=== PATIENT | male | born 1945 | race Caucasian/White ===

== ENCOUNTER → 2017-01-24 | Outpatient (CLI) | payer MEDICARE, OTHER ==
[~2017-01-24] MED LIST: Iopamidol 755 MG/ML 500 ML Multipack Bottle IVPUSH STA
--- NOTE | 2017-01-24 15:45 | CT ---
CT of the abdomen and pelvis with contrast. HISTORY: Pain TECHNIQUE: Axial CT images were obtained of the abdomen and pelvis following administration of 100 m L of Isovue-370 right antecubital fossa without complication. Coronal and sagittal reconstructions o btained. FINDINGS: The lung bases are clear, no pleural effusion. Tiny hepatic cysts are noted. The spleen, pancreas, and gallbladder appear normal. Tiny adrenal nod ules are noted, likely adenomas. No bulky retroperitoneal lymphadenopathy or abdominal ascites. Sm all hiatal hernia. The kidneys enhance and function symmetrically without evidence of obstructive uropathy. Small nonob structing renal stones noted bilaterally. The large and small bowel are normal in caliber without evidence of obstruction. Mild sigmoid and de scending diverticulosis without evidence of diverticulitis. The prostate is mildly prominent. Degenerative changes are noted within the lumbar spine with bilateral spondylolysis at L5 without si gnificant anterolisthesis. IMPRESSION: 1. No acute cardiopulmonary findings. 2. Lateral nephrolithiasis without evidence of obstructive uropathy. 3. Diverticulosis without evidence of diverticulitis. 4. Small hiatal hernia.
== END ==
LOC: MW.DI 12:47
PROVIDERS: ATTEND Family Medicine
DX: R10.84 Generalized abdominal pain (principal); N20.0 Calculus of kidney; K57.90 Diverticulosis of intestine, part unspecified, without perforation or abscess without bleeding; K44.9 Diaphragmatic hernia without obstruction or gangrene
CPT/HCPCS: 74177; Q9967

== ENCOUNTER 2018-12-14 07:06 | Day surgery (SDC) | payer MEDICARE, OTHER ==
[2018-12-14] MEDS ORDERED: Bupivacaine 0.25%/EPINEPHrine 1:200,000 10 ML SDV ONE (07:34)
[2018-12-14] MEDS ORDERED: Tetracaine HCl/PF 0.5% 4 ML Bottle ONE (07:34)
[2018-12-14] MEDS ORDERED: fentaNYL 100 MCG/2 ML SDV ONE (07:39)
[2018-12-14] MEDS ORDERED: Propofol 200 MG/20 ML SDV ONE (07:39)
[2018-12-14] MEDS ORDERED: Lidocaine 2% 5 ML SDV ONE (07:39)
[2018-12-14] MEDS ORDERED: Midazolam 1 MG/ML 2 ML SDV ONE (07:40)
--- NOTE | 2018-12-14 07:47 | PCM.PREANE ---
Preanesthetic Assessment - Anesthesia/Transfusion/Family Hx Anesthesia History: Prior Anesthesia Without Reaction Other Type of Anesthesia Reaction Comment: Denies any known problems in the past Family History of Anesthesia Reaction: No Transfusion History: No Prior Transfusion(s) Intubation History: Unknown - Review of Systems General: No Symptoms Pulmonary: No Symptoms Cardiovascular: No Symptoms Gastrointestinal: No Symptoms Neurological: No Symptoms Other: Reports: None - Physical Assessment O2 Sat by Pulse Oximetry: 94 Respiratory Rate: 16 Vital Signs: Last Vital Signs Temp 36.6 C 12/14/18 07:25 Pulse 81 12/14/18 07:25 Resp 16 12/14/18 07:25 BP 148/83 H 12/14/18 07:25 Pulse Ox 94 L 12/14/18 07:25 Height: 1.7 m Weight: 103.873 kg ASA Class: 3 Mental Status: Alert & Oriented x3 Airway Class: Mallampati = 2 Dentition: Reports: Normal Dentition, Partial (upper and lower) Thyro-Mental Finger Breadths: 3 Mouth Opening Finger Breadths: 2 ROM/Head Extension: Limited/Partial Lungs: Clear to Auscultation, Normal Respiratory Effort Cardiovascular: Regular Rate, Regular Rhythm - Allergies Allergies/Adverse Reactions: Allergies Allergy/AdvReac Type Severity Reaction Status Date / Time No Known Allergies Allergy Verified 12/12/18 09:20 - Blood Blood Available: No - Anesthesia Plan Pre-Op Medication Ordered: None - Acknowledgements Anesthesia Type Planned: MAC Pt an Appropriate Candidate for the Planned Anesthesia: Yes Alternatives and Risks of Anesthesia Discussed w Pt/Guardian: Yes Pt/Guardian Understands and Agrees with Anesthesia Plan: Yes PreAnesthesia Questionnaire HEENT History: Reports: Cataract, Hard of Hearing Other HEENT History: jose hearing aids, top and bottom partial, wears glasses Cardiovascular History: Reports: High Cholesterol, Other (See Below) (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 No status epilepticus.), TIA Other Neuro History: stroke 2 yrs ago, currently has TIA's- last one was 2 weeks ago (they cause menory loss). Has balance issues from CVA Psychiatric History: Reports: Anxiety, Dementia, Depression Endocrine/Metabolic History: Reports: Hypothyroidism, Obesity/BMI 30+ Hematologic History: Reports: None Immunologic History: Reports: None Oncologic (Cancer) History: Reports: Basal Cell Carcinoma Dermatologic History: Reports: None - Infectious Disease History Infectious Disease History: Reports: None - Past Surgical History Head Surgeries/Procedures: Reports: None HEENT Surgical History: Reports: Cataract Surgery, Tonsillectomy Cardiovascular Surgical History: Reports: None Respiratory Surgical History: Reports: Tracheostomy Other Respiratory Surgeries/Procedures: as a child (choked on a peanut) GI Surgical History: Reports: Appendectomy, Colon, Colonoscopy, Polypectomy, Other (See Below) Other GI Surgeries/Procedures: umbilical hernia repair Male Surgical History: Reports: Lithotripsy (ESWL) Endocrine Surgical History: Reports: None Neurological Surgical History: Reports: None Musculoskeletal Surgical History: Reports: None Oncologic Surgical History: Reports: None Dermatological Surgical History: Reports: None - SUBSTANCE USE Smoking Status *Q: Former Smoker Recreational Drug Use History: No - HOME MEDS Home Medications: Home Meds Simvastatin [Zocor] 40 mg PO BEDTIME 05/16/14 [History] Aspirin [Adult Low Dose Aspirin EC] 81 mg PO DAILY 08/16/16 [History] Donepezil [Aricept] 5 mg PO BEDTIME 09/06/18 [History] Levothyroxine [Synthroid] 88 mcg PO SuTuThSa@0700 tablet 09/08/18 [Rx] Levothyroxine [Synthroid] 132 mcg PO MoWeFr@0700 tablet 09/08/18 [Rx] Amitriptyline [Elavil] 25 mg PO BEDTIME 12/12/18 [History] Cyanocobalamin (Vitamin B12) [Vitamin B12] 1,000 mcg PO DAILY 12/12/18 [History] Naproxen 500 mg PO Q12H PRN 12/12/18 [History] Polyethylene Glycol 3350 [MiraLAX] 17 gm PO DAILY 12/12/18 [History] - CURRENT (IN HOUSE) MEDS Current Meds: Current Medications Bupivacaine HCl/Epinephrine Bitart (Marcaine 0.25%/Epinephrine 1:200,000) 10 ml INJECT ONETIME ONE Stop: 12/14/18 08:01 Cefazolin Sodium/Dextrose 2 gm (/ Premix) 50 mls @ 100 mls/hr IV ONETIME ONE Stop: 12/14/18 08:29 Lactated Ringer's (Ringers, Lactated) 1,000 mls @ 125 mls/hr IV ASDIRECTED DARYN Last Admin: 12/14/18 07:41 Dose: 125 mls/hr Discontinued Medications Bacitracin (Bacitracin Ophth Oint) Confirm Administered Dose 3.5 gm .ROUTE .STK- MED ONE Stop: 12/14/18 07:35 Bupivacaine HCl/Epinephrine Bitart (Marcaine 0.25%/Epinephrine 1:200,000) Confirm Administered Dose 10 ml .ROUTE .STK-MED ONE Stop: 12/14/18 07:35 Tetracaine HCl (Tetracaine 0.5% Steri-Unit Roselyn) Confirm Administered Dose 4 ml .ROUTE .STK-MED ONE Stop: 12/14/18 07:35
[2018-12-14] MEDS ORDERED: Bupivacaine 0.25%/EPINEPHrine 1:200,000 10 ML SDV INJECT ONE (08:00)
[2018-12-14] MEDS ORDERED: Lactated Ringers 1,000 ML IV SCH (08:00)
[2018-12-14] MEDS ORDERED: ceFAZolin 2 GM in Premix Bag 1 BAG IV ONE (08:00)
[2018-12-14] MEDS ORDERED: ceFAZolin 1 GM Vial ONE (08:22)
[2018-12-14] MEDS ORDERED: Ondansetron 4 MG/2 ML SDV ONE (09:36)
[2018-12-14 10:00] VITALS: BP 120/83
--- NOTE | 2018-12-14 10:18 | PCM48HPAN ---
Post Anesthesia Note - EVALUATION WITHIN 48HRS OF ANESTHETIC Vital Signs in Normal Range: Yes Patient Participated in Evaluation: Yes Respiratory Function Stable: Yes Airway Patent: Yes Cardiovascular Function Stable: Yes Hydration Status Stable: Yes Pain Control Satisfactory: Yes Nausea and Vomiting Control Satisfactory: Yes Mental Status Recovered: Yes Resp Rate: 15 - COMMENTS/OBSERVATIONS Free Text/Narrative:: no anesthesia problems
--- NOTE | 2018-12-14 10:18 | PCM.POSTAN ---
POST ANESTHESIA ASSESSMENT - MENTAL STATUS Mental Status: Alert, Oriented - RESPIRATORY Respiratory Status: Respiratory Rate WNL, Airway Patent, O2 Saturation Stable - CARDIOVASCULAR CV Status: Pulse Rate WNL, Blood Pressure Stable - GASTROINTESTINAL GI Status: No Symptoms - PAIN Pain Score: 0 - POST OP HYDRATION Hydration Status: Adequate & Stable - OBSERVATIONS Free Text/Narrative:: No anesthesia problems, patient skipped recovery room stage of postoperative care
--- NOTE | 2018-12-18 08:34 | PCM.OPNOTE ---
- General Post-Op/Procedure Note Date of Surgery/Procedure: 12/14/18 Operative Procedure(s): excision of nose lesion with frozen sections - basal cell 1.4cm with simple 1.4cm closure Pre Op Diagnosis: nose basal cell Post-Op Diagnosis: Same Anesthesia Technique: Local, MAC Primary Surgeon: Camila Schroeder [employer] Instructor: Anuradha Moore Complications: None Condition: Good Free Text/Narrative:: [id number]
--- NOTE | 2018-12-18 14:30 | OR ---
SURGEON: LUIS FELIPE LOPEZ MD DATE OF PROCEDURE: 12/14/2018 PREOPERATIVE DIAGNOSIS: Nose basal cell. POSTOPERATIVE DIAGNOSIS: Nose basal cell. PROCEDURE PERFORMED: Excision of nose lesion with frozen sections basal cell carcinoma 1.4 cm with simple 1.4 cm closure. STEEL TESTER: LUIS ARMANDO Marr. ANESTHESIA: Local MAC. REASON FOR AND ROLE OF STEEL TESTER: Retraction, prepping, draping, positioning and closure assistance. INDICATIONS: Mr. Oshea is a 73-year-old gentleman with a nose lesion. He has failed conservative management. Risks and benefits of removal were discussed with him, including but not limited to, bleeding, infection, damage to underlying or overlying structures, possible need for future interventions, and possible scarring. PROCEDURE IN DETAIL: After informed consent was obtained and placed on chart, the patient was brought to the operating theater and laid in supine position. After adequate local MAC anesthesia was obtained, the area was prepped and draped, and a time-out was completed to confirm side and site. Attention was then paid to excision of the lesion in an elliptical fashion for a total length of 1.4 cm on the tip of the nose. Fortunately, the nose tip was quite large and was easily closed in a primary fashion. Once adequately closed, the lesion had been sent for pathology and frozen sections returned as basal cell with negative margins. The wound was dressed with bacitracin. The patient was transferred o preanesthesia for recovery. He tolerated this well. All counts and needles were correct at the end of the case. FOLLOWUP INSTRUCTIONS: The patient will see us in one week for suture removal or sooner if any problems, questions, or concerns. He will use [id number]-cil-hwldeld medications for pain control as needed. HEGGTHE / MODL /[id number] MTDDaniel
== END 2018-12-14 10:20 | disposition home or self-care (01) ==
LOC: MW.SDS 07:06
PROVIDERS: ATTEND Plastic Surgery
DX: C44.311 Basal cell carcinoma of skin of nose (principal); E78.00 Pure hypercholesterolemia, unspecified; E03.9 Hypothyroidism, unspecified; F03.90 Unspecified dementia, unspecified severity, without behavioral disturbance, psychotic disturbance, mood disturbance, and anxiety; F41.9 Anxiety disorder, unspecified; F32.9 Major depressive disorder, single episode, unspecified; G40.209 Localization-related (focal) (partial) symptomatic epilepsy and epileptic syndromes with complex partial seizures, not intractable, without status epilepticus; G47.30 Sleep apnea, unspecified; E66.9 Obesity, unspecified; Z68.35 Body mass index [BMI] 35.0-35.9, adult; Z87.891 Personal history of nicotine dependence; Z86.73 Personal history of transient ischemic attack (TIA), and cerebral infarction without residual deficits; Z79.82 Long term (current) use of aspirin; Z79.899 Other long term (current) drug therapy
CPT/HCPCS: 11642; J0690; J2001; J2405; J2704; J3010; J3490; J7120; 88305; 88331; A9270-GY; J2250

== ENCOUNTER 2019-06-09 14:11 | Emergency (ER) | payer MEDICARE, OTHER ==
--- NOTE | 2019-06-09 14:30 | EDM.PDOC ---
ED HPI GENERAL MEDICAL PROBLEM - General Chief Complaint: Upper Extremity Injury/Pain Stated Complaint: PAIN IN RIGHT WRIST Time Seen by Provider: 06/09/19 14:35 Source of Information: Reports: Patient History Limitations: Reports: No Limitations - History of Present Illness INITIAL COMMENTS - FREE TEXT/NARRATIVE: HISTORY AND PHYSICAL: History of present illness: Patient is a 73-year-old male presents to the ED today with concern of right wrist injury that occurred 2-3 weeks ago. Patient states he had fallen and hit his garage a few weeks ago and doesn't recall the specifics of the events. Patient states he's had wrist pain off and on since the fall and swelling off and on. Patient states over the past 2 days he's had swelling of the right wrist and right hand and pain. Patient states he's been able to use the hand but does have some pain in doing so. Patient denies any other symptoms or concerns. Patient denies fever, chills, chest pain, shortness of breath, or cough. Denies headache, neck stiff ness, change in vision, syncope, or near syncope. Denies nausea, vomiting, abdominal pain, diarrhea, constipation, or dysuria. Has not noted any blood in urine or stool. Patient has been eating and drinking appropriately. Review of systems: As per history of present illness and below otherwise all systems reviewed and negative. Past medical history: As per history of present illness and as reviewed below otherwise noncontributory. Surgical history: As per history of present illness and as reviewed below otherwise noncontributory. Social history: See social history for further information Family history: As per history of present illness and as reviewed below otherwise noncontributory. Physical exam: General: Patient is alert, oriented, and in no acute distress. Patient sitting comfortably on exam table. HEENT: Atraumatic, normocephalic, pupils equal and reactive bilaterally, negative for conjunctival pallor or scleral icterus, mucous membranes moist, TMs normal bilaterally, throat clear, neck supple, nontender, trachea midline. No drooling or trismus noted. No meningeal signs. No hot potato voice noted. Lungs: Clear to auscultation, breath sounds equal bilaterally, chest nontender. Heart: S1S2, regular rate and rhythm without overt murmur Abdomen: Soft, nondistended, nontender. Negative for masses or hepatosplenomegaly. Negative for costovertebral tenderness. Pelvis: Stable nontender. Genitourinary: Deferred. Rectal: Deferred. Skin: Intact, warm, dry. No lesions or rashes noted. Extremities: Negative for cords or calf pain. Neurovascular unremarkable. Patient has full range of motion of complete right upper extremity and radial pulses grossly intact with capillary refill less than 2 seconds. The right wrist and hand is moderately edematous but is not erythematous or warm to the touch. Mild pain with ROM of right wrist. Neuro: Awake, alert, oriented. Cranial nerves II through XII unremarkable. Cerebellum unremarkable. Motor and sensory unremarkable throughout. Exam nonfocal. Notes: Discussed the importance for follow-up with an orthopedic provider and primary care provider. Voices understanding and is agreeable to plan of care. Denies any further questions or concerns at this time. Diagnostics: Wrist x-ray, trouble x-ray, hand x-ray Therapeutics: Wrist splint Prescription: None Impression: Right wrist pain Plan: 1. Rest, ice, elevate the affected extremity. You can apply ice 15 minutes on, 15 minutes off. 2. Tylenol as directed for pain management or discomfort. 3. Follow up with the Orthopedic provider and primary care as discussed. Return to the ED as needed and as discussed. Definitive disposition and diagnosis as appropriate pending reevaluation and review of above. right wrist Pain Score (Numeric/FACES): 7 - Related Data Allergies Allergy/AdvReac Type Severity Reaction Status Date / Time No Known Allergies Allergy Verified 06/09/19 14:25 Home Meds: Home Meds Simvastatin [Zocor] 40 mg PO BEDTIME 05/16/14 [History] Aspirin [Adult Low Dose Aspirin EC] 81 mg PO DAILY 08/16/16 [History] Donepezil [Aricept] 5 mg PO BEDTIME 09/06/18 [History] Levothyroxine [Synthroid] 88 mcg PO SuTuThSa@0700 tablet 09/08/18 [Rx] Levothyroxine [Synthroid] 132 mcg PO MoWeFr@0700 tablet 09/08/18 [Rx] Amitriptyline [Elavil] 25 mg PO BEDTIME 12/12/18 [History] Cyanocobalamin (Vitamin B12) [Vitamin B12] 1,000 mcg PO DAILY 12/12/18 [History] Naproxen 500 mg PO Q12H PRN 12/12/18 [History] Polyethylene Glycol 3350 [MiraLAX] 17 gm PO DAILY 12/12/18 [History] Past Medical History HEENT History: Reports: Cataract, Hard of Hearing Other HEENT History: jose hearing aids, top and bottom partial, wears glasses Cardiovascular History: Reports: High Cholesterol, Other (See Below) (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 No status epilepticus.), TIA Other Neuro History: stroke 2 yrs ago, currently has TIA's- last one was 2 weeks ago (they cause menory loss). Has balance issues from CVA Psychiatric History: Reports: Anxiety, Dementia, Depression Endocrine/Metabolic History: Reports: Hypothyroidism, Obesity/BMI 30+ Hematologic History: Reports: None Immunologic History: Reports: None Oncologic (Cancer) History: Reports: Basal Cell Carcinoma Dermatologic History: Reports: None - Infectious Disease History Infectious Disease History: Reports: None - Past Surgical History Head Surgeries/Procedures: Reports: None HEENT Surgical History: Reports: Cataract Surgery, Tonsillectomy Cardiovascular Surgical History: Reports: None Respiratory Surgical History: Reports: Tracheostomy Other Respiratory Surgeries/Procedures: as a child (choked on a peanut) GI Surgical History: Reports: Appendectomy, Colon, Colonoscopy, Polypectomy, Other (See Below) Other GI Surgeries/Procedures: umbilical hernia repair Male Surgical History: Reports: Lithotripsy (ESWL) Endocrine Surgical History: Reports: None Neurological Surgical History: Reports: None Musculoskeletal Surgical History: Reports: None Oncologic Surgical History: Reports: None Dermatological Surgical History: Reports: None Social & Family History - Family History Family Medical History: Noncontributory - Caffeine Use Caffeine Use: Reports: Coffee - Living Situation & Occupation Living situation: Reports: Occupation: Retired Review of Systems - Review of Systems Review Of Systems: ROS reveals no pertinent complaints other than HPI. ED EXAM, GENERAL - Physical Exam Exam: See Below (See dictation) Course - Vital Signs Last Recorded V/S: Last Vital Signs Temp 97.0 F 06/09/19 14:25 Pulse 89 06/09/19 14:25 Resp 18 06/09/19 14:25 BP 164/78 H 06/09/19 14:25 Pulse Ox 92 L 06/09/19 14:25 - Orders/Labs/Meds Orders: Active Orders 24 hr Category Date Time Status DME for Discharge [COMM] Stat Oth 06/09/19 15:21 Ordered Departure - Departure Time of Disposition: 15:23 Disposition: Home, Self-Care 01 Clinical Impression: Wrist pain Qualifiers: Laterality: right Qualified Code(s): M25.531 - Pain in right wrist - Discharge Information Referrals: PCP,Unknown [Primary Care Provider] - Forms: ED Department Discharge Additional Instructions: The following information is given to patients seen in the emergency department who are being discharged to home. This information is to outline your options for follow-up care. We provide all patients seen in our emergency department with a follow-up referral. The need for follow-up, as well as the timing and circumstances, are variable depending upon the specifics of your emergency department visit. If you don't have a primary care physician on staff, we will provide you with a referral. We always advise you to contact your personal physician following an emergency department visit to inform them of the circumstance of the visit and for follow-up with them and/or the need for any referrals to a consulting specialist. The emergency department will also refer you to a specialist when appropriate. This referral assures that you have the opportunity for follow-up care with a specialist. All of these measure are taken in an effort to provide you with optimal care, which includes your follow-up. Under all circumstances we always encourage you to contact your private physician who remains a resource for coordinating your care. When calling for follow-up care, please make the office aware that this follow-up is from your recent emergency room visit. If for any reason you are refused follow-up, please contact the [facility] Emergency Department at and asked to speak to the emergency department charge nurse. [facility] [address] [place] [id number] [facility] [address] [place] [address] [facility] - [facility] Professional Building [address] [facility] [place] [address] [address] Jackson, Orthopedist [facility] [address] [place] [address] [address] Betancourt - Dr Penn - Dr Younger Orthoped[facility] at [facility] [address] [place] [address] [facility] [address] [place] [address] 1. Rest, ice, elevate the affected extremity. You can apply ice 15 minutes on, 15 minutes off. 2. Tylenol as directed for pain management or discomfort. 3. Follow up with the Orthopedic provider and primary care as discussed. Return to the ED as needed and as discussed. - My Orders Last 24 Hours: My Active Orders 06/09/19 15:21 DME for Discharge [COMM] Stat - Assessment/Plan Last 24 Hours: My Active Orders 06/09/19 15:21 DME for Discharge [COMM] Stat
--- NOTE | 2019-06-09 15:14 | CR ---
Indication: Pain. Injury to right arm. Technique: Three views of the right elbow were obtained. Comparison: None Findings: No acute fracture or subluxation is identified. Small enthesophyte is identified extending from the olecranon. Impression: No acute fracture. Dictated by Promise Gomez MD @ Jun 09 2019 3:12PM Signed by Dr. Promise Gomez @ Jun 09 2019 3:12PM
--- NOTE | 2019-06-09 15:14 | CR ---
Indication: Pain. Injury to right arm. Technique: Three views of the right wrist. Comparison: None Findings: Degenerative changes of the right wrist are identified. No fracture or subluxation is identified. Impression: Degenerative change. Dictated by Promise Gomez MD @ Jun 09 2019 3:11PM Signed by Dr. Promise Gomez @ Jun 09 2019 3:12PM
--- NOTE | 2019-06-09 15:14 | CR ---
Indication: Pain. Injury. Technique: Three views of the right hand. Comparison: None Findings: Degenerative changes of the right hand are identified. No fracture or subluxation is identified. Impression: Degenerative change. Dictated by Promise Gomez MD @ Jun 09 2019 3:13PM Signed by Dr. Promise Gomez @ Jun 09 2019 3:13PM
[2019-06-09 15:43] VITALS: BP 160/80; PULSE 86
== END 2019-06-09 15:36 | disposition home or self-care (01) ==
LOC: MW.ED 14:11
DX: M25.531 Pain in right wrist (principal); F32.9 Major depressive disorder, single episode, unspecified; F41.9 Anxiety disorder, unspecified; E03.9 Hypothyroidism, unspecified; E66.9 Obesity, unspecified; E78.00 Pure hypercholesterolemia, unspecified; Z79.899 Other long term (current) drug therapy; Z79.82 Long term (current) use of aspirin; Z86.73 Personal history of transient ischemic attack (TIA), and cerebral infarction without residual deficits; Z98.890 Other specified postprocedural states; Z90.49 Acquired absence of other specified parts of digestive tract; Z68.33 Body mass index [BMI] 33.0-33.9, adult; W01.0XXA Fall on same level from slipping, tripping and stumbling without subsequent striking against object, initial encounter
CPT/HCPCS: 73080-26-RT; 73080-RT; 73110-26-RT; 73110-RT; 73130-26-RT; 73130-RT; 99283-25

== ENCOUNTER 2019-10-26 08:05 | Observation (INO) | payer MEDICARE, OTHER ==
--- NOTE | 2019-10-26 09:04 | EDM.PDOC ---
ED HPI GENERAL MEDICAL PROBLEM - General Chief Complaint: General Stated Complaint: SICK Time Seen by Provider: 10/26/19 08:53 Source of Information: Reports: Family (All history was gotten by his .) History Limitations: Reports: No Limitations - History of Present Illness INITIAL COMMENTS - FREE TEXT/NARRATIVE: This 74 year male with a history of severe dementia is admitted to the ED with a chief complaint according to his of chest pain with pain and tingling into both arms, right greater than the left since 6:00AM this morning. He complains of nausea and vomiting. He complains of SOB since this morning. He has a history of hypertension and high lipids. 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 No past cardiac problems according to his . She states that other than his severe dementia he has no other complaints. Onset: Today (6:00AM this morning) Location: Reports: Chest Quality: Reports: Dull, Sharp Severity: Mild (to moderate) - Related Data Allergies Allergy/AdvReac Type Severity Reaction Status Date / Time No Known Allergies Allergy Verified 10/26/19 08:19 Home Meds: Home Meds Donepezil [Aricept] 10 mg PO BEDTIME 09/06/18 [History] Levothyroxine [Synthroid] 88 mcg PO [id number]@0700 tablet 09/08/18 [Rx] Levothyroxine [Synthroid] 132 mcg PO MoWeFr@0700 tablet 09/08/18 [Rx] Aspirin 81 mg PO DAILY 10/26/19 [History] Sertraline HCl 50 mg PO DAILY 10/26/19 [History] Topiramate 25 mg PO DAILY 10/26/19 [History] Past Medical History HEENT History: Reports: Cataract, Hard of Hearing Other HEENT History: jose hearing aids, top and bottom partial, wears glasses Cardiovascular History: Reports: High Cholesterol Respiratory History: Reports: Sleep Apnea Other Respiratory History: uses CPAP Gastrointestinal History: Reports: Colon Polyp, Diverticulosis, GERD Genitourinary History: Reports: Renal Calculus Musculoskeletal History: Reports: Back Pain, Chronic Neurological History: Reports: CVA, Headaches, Chronic, Seizure, TIA Other Neuro History: stroke 2 yrs ago, TIA's with memory loss. Has balance issues from CVA Psychiatric History: Reports: Antisocial Behaviors, Anxiety, Dementia, Depression Endocrine/Metabolic History: Reports: Hypothyroidism, Obesity/BMI 30+ Hematologic History: Reports: None Immunologic History: Reports: None Oncologic (Cancer) History: Reports: Basal Cell Carcinoma Dermatologic History: Reports: None - Infectious Disease History Infectious Disease History: Reports: Chicken Pox, Meningitis, Mumps - Past Surgical History Head Surgeries/Procedures: Reports: None HEENT Surgical History: Reports: Cataract Surgery, Tonsillectomy Cardiovascular Surgical History: Reports: None Respiratory Surgical History: Reports: Tracheostomy Other Respiratory Surgeries/Procedures: as a child (choked on a peanut) GI Surgical History: Reports: Appendectomy, Colon, Colonoscopy, Polypectomy, Other (See Below) Other GI Surgeries/Procedures: umbilical hernia repair Male Surgical History: Reports: Lithotripsy (ES[facility]) Endocrine Surgical History: Reports: None Neurological Surgical History: Reports: None Musculoskeletal Surgical History: Reports: None Oncologic Surgical History: Reports: None Dermatological Surgical History: Reports: None Social & Family History - Family History Family Medical History: Noncontributory - Tobacco Use Smoking Status *Q: Former Smoker Used Tobacco, but Quit: No Second Hand Smoke Exposure: No - Caffeine Use Caffeine Use: Reports: Coffee - Recreational Drug Use Recreational Drug Use: No - Living Situation & Occupation Living situation: Reports: Occupation: Retired ED ROS GENERAL - Review of Systems Review Of Systems: See Below Constitutional: Reports: No Symptoms HEENT: Reports: No Symptoms Respiratory: Reports: Shortness of Breath Cardiovascular: Reports: Chest Pain. Denies: Lightheadedness, Orthopnea, Palpitations, Syncope Endocrine: Reports: No Symptoms GI/Abdominal: Reports: Nausea, Vomiting (this morning times one) : Reports: No Symptoms Musculoskeletal: Reports: No Symptoms Skin: Reports: No Symptoms Neurological: Reports: Other (Severe dementia) ED EXAM, GENERAL - Physical Exam Exam: See Below Exam Limited By: Altered Mental Status (Dementia) General Appearance: Alert, No Apparent Distress Eye Exam: Bilateral Eye: EOMI, Normal Inspection, PERRL Ears: Normal External Exam, Normal Canal, Hearing Grossly Normal, Normal TMs Ear Exam: Bilateral Ear: Auricle Normal, Canal Normal, TM normal Nose: Normal Inspection, Normal Mucosa, No Blood Throat/Mouth: Normal Inspection, Normal Lips, Normal Teeth, Normal Gums, Normal Oropharynx, Normal Voice, No Airway Compromise Head: Atraumatic, Normocephalic Neck: Normal Inspection, Supple, Non-Tender Respiratory/Chest: No Respiratory Distress, Chest Non-Tender, Rales (mild rales in both bases at time of my evaluation). No: Rhonchi, Wheezing Cardiovascular: Normal Peripheral Pulses, Regular Rate, Rhythm, Systolic Murmur (grade 2/6 best heard at the apex). No: No JVD, No Rub, JVD, Gallop/S3 Peripheral Pulses: 2+: Radial (L), 3+: Carotid (L), Carotid (R), Radial (R), Dorsalis Pedis (L), Dorsalis Pedis (R) GI/Abdominal: Normal Bowel Sounds, Soft, Non-Tender, No Organomegaly, No Distention, No Abnormal Bruit, No Mass (Male) Exam: Deferred Rectal (Males) Exam: Deferred Back Exam: Normal Inspection Extremities: Normal Inspection, Non-Tender, No Pedal Edema. No: Joint Swelling , Ludmila's Sign, Leg Pain Neurological: Alert, Normal Reflexes, Other (unable to evaluate due to severe dementia. Mild weakness noted of the left arm and leg. He is status post CVA 3 years ago.) Skin Exam: Warm, Dry, Intact, Normal Color, No Rash Lymphatic: No Adenopathy Course - Vital Signs Text/Narrative:: I re-examined the patient. His physical exam is negative. His CT of the head is negative. He will be discharged at this time. Last Recorded V/S: Last Vital Signs Temp 96.5 F 10/26/19 08:19 Pulse 72 10/26/19 08:19 Resp 16 10/26/19 08:19 BP 172/99 H 10/26/19 08:19 Pulse Ox 97 10/26/19 08:19 - Orders/Labs/Meds Orders: Active Orders 24 hr Category Date Time Status EKG 12 Lead [EKG Documentation Completion] [RC] STAT Care 10/26/19 08:46 Active CULTURE URINE [RM] Stat Lab 10/26/19 09:26 Received Labs: Laboratory Tests 10/26/19 10/26/19 10/26/19 Range/Units 08:40 08:40 08:40 WBC 8.59 (4.0-11.0) K/uL RBC 5.00 (4.50-5.90) M/uL Hgb 16.1 (13.0-17.0) g/dL Hct 46.7 (38.0-50.0) % MCV 93.4 (80.0-98.0) fL MCH 32.2 H (27.0-32.0) pg MCHC 34.5 (31.0-37.0) g/dL RDW Std Deviation 46.8 (28.0-62.0) fl RDW Coeff of [place] 14 (11.0-15.0) % Plt Count 182 (150-400) K/uL MPV 10.10 (7.40-12.00) fL Neut % (Auto) 83.6 H (48.0-80.0) % Lymph % (Auto) 10.0 L (16.0-40.0) % [place] % (Auto) 5.5 (0.0-15.0) % Eos % (Auto) 0.6 (0.0-7.0) % Baso % (Auto) 0.3 (0.0-1.5) % Neut # (Auto) 7.2 H (1.4-5.7) K/uL Lymph # (Auto) 0.9 (0.6-2.4) K/uL [place] # (Auto) 0.5 (0.0-0.8) K/uL Eos # (Auto) 0.1 (0.0-0.7) K/uL Baso # (Auto) 0.0 (0.0-0.1) K/uL Nucleated RBC % 0.0 /100WBC Nucleated RBCs # 0 K/uL Sodium 141 (136-148) mmol/L Potassium 3.5 (3.5-5.1) mmol/L Chloride 107 (98-107) mmol/L Carbon Dioxide 21.2 (21.0-32.0) mmol/L BUN 17 (7.0-18.0) mg/dL Creatinine 1.2 (0.8-1.3) mg/dL Est Cr Clr Drug Dosing 50.49 mL/min Estimated GFR (MDRD) 59.2 ml/min Glucose 165 H (74-106) mg/dL Calcium 8.7 (8.5-10.1) mg/dL Magnesium (1.8-2.4) mg/dL Total Bilirubin 1.0 (0.2-1.0) mg/dL AST 20 (15-37) IU/L ALT 30 (14-63) IU/L Alkaline Phosphatase 99 (46-116) U/L Troponin I < 0.050 (0.000-0.056) ng/mL B-Natriuretic Peptide (<100) PG/ML Total Protein 7.2 (6.4-8.2) g/dL Albumin 3.8 (3.4-5.0) g/dL Globulin 3.4 (2.6-4.0) g/dL Albumin/Globulin Ratio 1.1 (0.9-1.6) Urine Color Urine Appearance Urine pH (5.0-8.0) Ur Specific [place] (1.001-1.035) Urine Protein (NEGATIVE) mg/dL Urine Glucose (UA) (NEGATIVE) mg/dL Urine Ketones (NEGATIVE) mg/dL Urine Occult Blood (NEGATIVE) Urine Nitrite (NEGATIVE) Urine Bilirubin (NEGATIVE) Urine Urobilinogen (<2.0) EU/dL Ur Leukocyte Esterase (NEGATIVE) Urine RBC (0-2/HPF) Urine WBC (0-5/HPF) Ur Epithelial Cells (NONE-FEW) Urine Bacteria (NEGATIVE) 10/26/19 10/26/19 10/26/19 Range/Units 08:40 08:40 09:26 WBC (4.0-11.0) K/uL RBC (4.50-5.90) M/uL Hgb (13.0-17.0) g/dL Hct (38.0-50.0) % MCV (80.0-98.0) fL MCH (27.0-32.0) pg MCHC (31.0-37.0) g/dL RDW Std Deviation (28.0-62.0) fl RDW Coeff of [place] (11.0-15.0) % Plt Count (150-400) K/uL MPV (7.40-12.00) fL Neut % (Auto) (48.0-80.0) % Lymph % (Auto) (16.0-40.0) % [place] % (Auto) (0.0-15.0) % Eos % (Auto) (0.0-7.0) % Baso % (Auto) (0.0-1.5) % Neut # (Auto) (1.4-5.7) K/uL Lymph # (Auto) (0.6-2.4) K/uL [place] # (Auto) (0.0-0.8) K/uL Eos # (Auto) (0.0-0.7) K/uL Baso # (Auto) (0.0-0.1) K/uL Nucleated RBC % /100WBC Nucleated RBCs # K/uL Sodium (136-148) mmol/L Potassium (3.5-5.1) mmol/L Chloride (98-107) mmol/L Carbon Dioxide (21.0-32.0) mmol/L BUN (7.0-18.0) mg/dL Creatinine (0.8-1.3) mg/dL Est Cr Clr Drug Dosing mL/min Estimated GFR (MDRD) ml/min Glucose (74-106) mg/dL Calcium (8.5-10.1) mg/dL Magnesium 2.0 (1.8-2.4) mg/dL Total Bilirubin (0.2-1.0) mg/dL AST (15-37) IU/L ALT (14-63) IU/L Alkaline Phosphatase (46-116) U/L Troponin I (0.000-0.056) ng/mL B-Natriuretic Peptide 77 (<100) PG/ML Total Protein (6.4-8.2) g/dL Albumin (3.4-5.0) g/dL Globulin (2.6-4.0) g/dL Albumin/Globulin Ratio (0.9-1.6) Urine Color YELLOW Urine Appearance HAZY Urine pH 6.0 (5.0-8.0) Ur Specific [place] 1.025 (1.001-1.035) Urine Protein NEGATIVE (NEGATIVE) mg/dL Urine Glucose (UA) NEGATIVE (NEGATIVE) mg/dL Urine Ketones NEGATIVE (NEGATIVE) mg/dL Urine Occult Blood LARGE H (NEGATIVE) Urine Nitrite NEGATIVE (NEGATIVE) Urine Bilirubin NEGATIVE (NEGATIVE) Urine Urobilinogen 0.2 (<2.0) EU/dL Ur Leukocyte Esterase TRACE H (NEGATIVE) Urine RBC 15-20 (0-2/HPF) Urine WBC 0-3 (0-5/HPF) Ur Epithelial Cells RARE (NONE-FEW) Urine Bacteria FEW (NEGATIVE) Departure - Departure Time of Disposition: 10:56 Disposition: Home, Self-Care 01 Condition: Good Clinical Impression: Alcohol intoxication Qualifiers: Complication of substance-induced condition: uncomplicated Qualified Code(s): F10.920 - Alcohol use, unspecified with intoxication, uncomplicated - Discharge Information *PRESCRIPTION DRUG MONITORING PROGRAM REVIEWED*: Yes *COPY OF PRESCRIPTION DRUG MONITORING REPORT IN PATIENT RAJEEV: Yes Instructions: Alcohol Abuse and Nutrition, Alcohol Intoxication Referrals: Ramin Chapman MD [Primary Care Provider] - Forms: ED Department Discharge Additional Instructions: Follow up with your PCP in the next two to four days. Drink plenty of clear liquids for the next 24 hours. Rest for the next 24 hours. Stop drinking alcohol. Return to the ED if your condition gets worse or should you have any questions or concerns. The following information is given to patients seen in the emergency department who are being discharged to home. This information is to outline your options for follow-up care. We provide all patients seen in our emergency department with a follow-up referral. The need for follow-up, as well as the timing and circumstances, are variable depending upon the specifics of your emergency department visit. If you don't have a primary care physician on staff, we will provide you with a referral. We always advise you to contact your personal physician following an emergency department visit to inform them of the circumstance of the visit and for follow-up with them and/or the need for any referrals to a consulting specialist. The emergency department will also refer you to a specialist when appropriate. This referral assures that you have the opportunity for follow-up care with a specialist. All of these measure are taken in an effort to provide you with optimal care, which includes your follow-up. Under all circumstances we always encourage you to contact your private physician who remains a resource for coordinating your care. When calling for follow-up care, please make the office aware that this follow-up is from your recent emergency room visit. If for any reason you are refused follow-up, please contact the [facility] Emergency Department at and asked to speak to the emergency department charge nurse. Sepsis Event Note - Evaluation Sepsis Screening Result: No Definite Risk - Focused Exam Vital Signs: Vital Signs Temp Pulse Resp BP Pulse Ox 10/26/19 08:19 96.5 F 72 16 172/99 H 97 Date Exam was Performed: 10/26/19 Time Exam was Performed: 10:55 - My Orders Last 24 Hours: My Active Orders 10/26/19 08:46 EKG 12 Lead [EKG Documentation Completion] [RC] STAT 10/26/19 09:26 CULTURE URINE [] Stat - Assessment/Plan Last 24 Hours: My Active Orders 10/26/19 08:46 EKG 12 Lead [EKG Documentation Completion] [RC] STAT 10/26/19 09:26 CULTURE URINE [] Stat
[2019-10-26 09:19] LABS: CARBON DIOXIDE,CO2 21.2 mmol/L (21.0-32.0); POTASSIUM,K 3.5 mmol/L (3.5-5.1)
--- NOTE | 2019-10-26 09:49 | CR ---
Chest: Portable view of the chest was obtained. Comparison: Prior chest x-ray of 09/06/18. Film technique is slightly suboptimal with over penetrating the left upper lung making details limited. Within this limitation, lungs are grossly clear. Heart size and mediastinum are normal. Bony structures show no discrete abnormality. Impression: 1. Slightly suboptimal technique as noted above. 2. Within above limitation, nothing acute is definitely appreciated. Diagnostic code #2 This report was dictated in [place] Standard Time
[2019-10-26] MEDS ORDERED: Ketorolac 30 MG/ML SDV IVPUSH ONE (11:06)
[2019-10-26] MEDS ORDERED: Albuterol/Ipratropium 3.0-0.5 MG/3 ML Neb Soln NEB PRN (15:30)
--- NOTE | 2019-10-26 16:19 | CT ---
Head CT Technique: Multiple axial sections through the brain were obtained. Comparison: Prior head CT study of 09/06/18. Findings: Ventricles along with basal cisterns and sulci over the convexities are moderately dilated. Old infarct within the right posterior frontal region. Diminished density is noted within the periventricular and subcortical white matter which is likely from small vessel ischemic demyelination change. No other abnormal parenchymal densities are seen. No evidence of intracranial hemorrhage. No midline shift or mass-effect is seen. Mastoid sinuses are clear. Minimal mucosal thickening which is believed to be incidental within the ethmoid sinuses. Minimal mucosal thickening is seen within the inferior right maxillary sinus. No acute calvarial abnormality is appreciated. Impression: 1. Senescent change as noted above. No acute intracranial abnormality is appreciated. 2. No significant change from previous head CT study is seen. Diagnostic code #2 This report was dictated in [place] Standard Time
[2019-10-26] MEDS: Aspirin 81 MG Tab.Chew PO SCH (16:37)
[2019-10-26] MEDS: cefTRIAXone 1 GM in Sodium Chloride 0.9% 50 ML IV SCH (16:38)
--- NOTE | 2019-10-26 16:47 | PCM.HP.2 ---
H&P History of Present Illness - General Date of Service: 10/26/19 Admit Problem/Dx: Admission Diagnosis/Problem Admission Diagnosis/Problem Chest pain - History of Present Illness Initial Comments - Free Text/Narative: This 74 year male with a history of severe dementia, CVA, HTN, HLD is admitted to the ED with a chief complaint of chest pain, N/V, SOB and tingling into both arms, right greater than the left since 6:00AM this morning per , although patient states that his tingling has been going on for weeks now. Reported nausea and vomiting. He complains of SOB since this morning. In the ER EKG showed Q waves in anterior leads, no acyte ST, T wave changes, troponin were negative. Patient himself denied any chest pain, only endorsed shoulder tingling for past few weeks although states he is forgetful as he has dementia. CBC, BMP were unremarkable. Patient was admitted for ACS rule out. CT scan was done which was negative for any acute findings. Onset of Symptoms: Reports: Today Duration of Symptoms: Reports: Hour(s): Location: Reports: Chest, Upper Extremity, Left, Upper Extremity, Right Quality: Reports: Pressure Severity: Moderate Bilateral Shoulder Pain Score (Numeric/FACES): 4 - Related Data Allergies/Adverse Reactions: Allergies Allergy/AdvReac Type Severity Reaction Status Date / Time iodine Allergy Other Verified 10/26/19 15:26 Home Medications: Home Meds Donepezil [Aricept] 10 mg PO BEDTIME 09/06/18 [History] Levothyroxine [Synthroid] 88 mcg PO SuTuThSa@0700 tablet 09/08/18 [Rx] Levothyroxine [Synthroid] 132 mcg PO MoWeFr@0700 tablet 09/08/18 [Rx] Aspirin 81 mg PO DAILY 10/26/19 [History] Sertraline HCl 50 mg PO DAILY 10/26/19 [History] Topiramate 25 mg PO BID 10/26/19 [History] Past Medical History HEENT History: Reports: Cataract, Hard of Hearing Other HEENT History: jose hearing aids, top and bottom partial, wears glasses Cardiovascular History: Reports: High Cholesterol Respiratory History: Reports: Sleep Apnea Other Respiratory History: uses CPAP Gastrointestinal History: Reports: Colon Polyp, Diverticulosis, GERD Genitourinary History: Reports: Renal Calculus Musculoskeletal History: Reports: Back Pain, Chronic Neurological History: Reports: CVA, Headaches, Chronic, Seizure, TIA Other Neuro History: stroke 2 yrs ago, TIA's with memory loss. Has balance issues from CVA Psychiatric History: Reports: Antisocial Behaviors, Anxiety, Dementia, Depression Endocrine/Metabolic History: Reports: Hypothyroidism, Obesity/BMI 30+ Hematologic History: Reports: None Immunologic History: Reports: None Oncologic (Cancer) History: Reports: Basal Cell Carcinoma Dermatologic History: Reports: None - Infectious Disease History Infectious Disease History: Reports: Chicken Pox, Meningitis, Mumps - Past Surgical History Head Surgeries/Procedures: Reports: None HEENT Surgical History: Reports: Cataract Surgery, Tonsillectomy Cardiovascular Surgical History: Reports: None Respiratory Surgical History: Reports: Tracheostomy Other Respiratory Surgeries/Procedures: as a child (choked on a peanut) GI Surgical History: Reports: Appendectomy, Colon, Colonoscopy, Polypectomy, Other (See Below) Other GI Surgeries/Procedures: umbilical hernia repair Male Surgical History: Reports: Lithotripsy (ESWL) Endocrine Surgical History: Reports: None Neurological Surgical History: Reports: None Musculoskeletal Surgical History: Reports: None Oncologic Surgical History: Reports: None Dermatological Surgical History: Reports: None Social & Family History - Family History Family Medical History: Noncontributory - Tobacco Use Smoking Status *Q: Never Smoker Used Tobacco, but Quit: No Second Hand Smoke Exposure: No - Caffeine Use Caffeine Use: Reports: Coffee - Recreational Drug Use Recreational Drug Use: No - Living Situation & Occupation Living situation: Reports: Occupation: Retired H&P Review of Systems - Review of Systems: Review Of Systems: See Below General: Denies: Fever, Chills, Malaise Pulmonary: Denies: Shortness of Breath, Wheezing Cardiovascular: Reports: Chest Pain. Denies: Palpitations, Dyspnea on Exertion , Orthopnea Gastrointestinal: Denies: Abdominal Pain, Anorexia, Black Stool Genitourinary: Denies: Dysuria, Frequency, Burning Musculoskeletal: Reports: Shoulder Pain, Arm Pain, Hand Pain. Denies: Neck Pain Skin: Denies: Cyanosis, Jaundice, Mottled Psychiatric: Denies: Confusion, Depression Neurological: Reports: Tingling Hematologic/Lymphatic: Denies: Easy Bleeding Exam - Exam Exam: See Below - Vital Signs Vital Signs: Last Vital Signs Temp 36.6 C 10/26/19 15:30 Pulse 72 10/26/19 15:30 Resp 18 10/26/19 15:30 BP 155/83 H 10/26/19 15:30 Pulse Ox 93 L 10/26/19 15:30 Weight: 95.8 kg - Exam General: Alert, Oriented, Cooperative Neck: Supple, Trachea Midline Lungs: Clear to Auscultation, Normal Respiratory Effort Cardiovascular: Regular Rate, Regular Rhythm, Normal S1, Normal S2 GI/Abdominal Exam: Normal Bowel Sounds, Soft, Non-Tender Neuro Extensive - Mental Status: Alert, Oriented x3, Normal Mood/Affect, Normal Cognition Neuro Extensive - Motor, Sensory, Reflexes: Normal Reflexes DTR: 3+: Achilles (L), Achilles (R) - Patient Data Lab Results Last 24 hrs: Laboratory Results - last 24 hr 10/26/19 10/26/19 10/26/19 Range/Units 08:40 08:40 08:40 WBC 8.59 (4.0-11.0) K/uL RBC 5.00 (4.50-5.90) M/uL Hgb 16.1 (13.0-17.0) g/dL Hct 46.7 (38.0-50.0) % MCV 93.4 (80.0-98.0) fL MCH 32.2 H (27.0-32.0) pg MCHC 34.5 (31.0-37.0) g/dL RDW Std Deviation 46.8 (28.0-62.0) fl RDW Coeff of [place] 14 (11.0-15.0) % Plt Count 182 (150-400) K/uL MPV 10.10 (7.40-12.00) fL Neut % (Auto) 83.6 H (48.0-80.0) % Lymph % (Auto) 10.0 L (16.0-40.0) % [place] % (Auto) 5.5 (0.0-15.0) % Eos % (Auto) 0.6 (0.0-7.0) % Baso % (Auto) 0.3 (0.0-1.5) % Neut # (Auto) 7.2 H (1.4-5.7) K/uL Lymph # (Auto) 0.9 (0.6-2.4) K/uL [place] # (Auto) 0.5 (0.0-0.8) K/uL Eos # (Auto) 0.1 (0.0-0.7) K/uL Baso # (Auto) 0.0 (0.0-0.1) K/uL Nucleated RBC % 0.0 /100WBC Nucleated RBCs # 0 K/uL Sodium 141 (136-148) mmol/L Potassium 3.5 (3.5-5.1) mmol/L Chloride 107 (98-107) mmol/L Carbon Dioxide 21.2 (21.0-32.0) mmol/L BUN 17 (7.0-18.0) mg/dL Creatinine 1.2 (0.8-1.3) mg/dL Est Cr Clr Drug Dosing 50.49 mL/min Estimated GFR (MDRD) 59.2 ml/min Glucose 165 H (74-106) mg/dL Calcium 8.7 (8.5-10.1) mg/dL Magnesium (1.8-2.4) mg/dL Total Bilirubin 1.0 (0.2-1.0) mg/dL AST 20 (15-37) IU/L ALT 30 (14-63) IU/L Alkaline Phosphatase 99 (46-116) U/L Troponin I < 0.050 (0.000-0.056) ng/mL B-Natriuretic Peptide (<100) PG/ML Total Protein 7.2 (6.4-8.2) g/dL Albumin 3.8 (3.4-5.0) g/dL Globulin 3.4 (2.6-4.0) g/dL Albumin/Globulin Ratio 1.1 (0.9-1.6) Urine Color Urine Appearance Urine pH (5.0-8.0) Ur Specific Met[place] (1.001-1.035) Urine Protein (NEGATIVE) mg/dL Urine Glucose (UA) (NEGATIVE) mg/dL Urine Ketones (NEGATIVE) mg/dL Urine Occult Blood (NEGATIVE) Urine Nitrite (NEGATIVE) Urine Bilirubin (NEGATIVE) Urine Urobilinogen (<2.0) EU/dL Ur Leukocyte Esterase (NEGATIVE) Urine RBC (0-2/HPF) Urine WBC (0-5/HPF) Ur Epithelial Cells (NONE-FEW) Urine Bacteria (NEGATIVE) 10/26/19 10/26/19 10/26/19 Range/Units 08:40 08:40 09:26 WBC (4.0-11.0) K/uL RBC (4.50-5.90) M/uL Hgb (13.0-17.0) g/dL Hct (38.0-50.0) % MCV (80.0-98.0) fL MCH (27.0-32.0) pg MCHC (31.0-37.0) g/dL RDW Std Deviation (28.0-62.0) fl RDW Coeff of [place] (11.0-15.0) % Plt Count (150-400) K/uL MPV (7.40-12.00) fL Neut % (Auto) (48.0-80.0) % Lymph % (Auto) (16.0-40.0) % [place] % (Auto) (0.0-15.0) % Eos % (Auto) (0.0-7.0) % Baso % (Auto) (0.0-1.5) % Neut # (Auto) (1.4-5.7) K/uL Lymph # (Auto) (0.6-2.4) K/uL [place] # (Auto) (0.0-0.8) K/uL Eos # (Auto) (0.0-0.7) K/uL Baso # (Auto) (0.0-0.1) K/uL Nucleated RBC % /100WBC Nucleated RBCs # K/uL Sodium (136-148) mmol/L Potassium (3.5-5.1) mmol/L Chloride (98-107) mmol/L Carbon Dioxide (21.0-32.0) mmol/L BUN (7.0-18.0) mg/dL Creatinine (0.8-1.3) mg/dL Est Cr Clr Drug Dosing mL/min Estimated GFR (MDRD) ml/min Glucose (74-106) mg/dL Calcium (8.5-10.1) mg/dL Magnesium 2.0 (1.8-2.4) mg/dL Total Bilirubin (0.2-1.0) mg/dL AST (15-37) IU/L ALT (14-63) IU/L Alkaline Phosphatase (46-116) U/L Troponin I (0.000-0.056) ng/mL B-Natriuretic Peptide 77 (<100) PG/ML Total Protein (6.4-8.2) g/dL Albumin (3.4-5.0) g/dL Globulin (2.6-4.0) g/dL Albumin/Globulin Ratio (0.9-1.6) Urine Color YELLOW Urine Appearance HAZY Urine pH 6.0 (5.0-8.0) Ur Specific [place] 1.025 (1.001-1.035) Urine Protein NEGATIVE (NEGATIVE) mg/dL Urine Glucose (UA) NEGATIVE (NEGATIVE) mg/dL Urine Ketones NEGATIVE (NEGATIVE) mg/dL Urine Occult Blood LARGE H (NEGATIVE) Urine Nitrite NEGATIVE (NEGATIVE) Urine Bilirubin NEGATIVE (NEGATIVE) Urine Urobilinogen 0.2 (<2.0) EU/dL Ur Leukocyte Esterase TRACE H (NEGATIVE) Urine RBC 15-20 (0-2/HPF) Urine WBC 0-3 (0-5/HPF) Ur Epithelial Cells RARE (NONE-FEW) Urine Bacteria FEW (NEGATIVE) 10/26/19 10/26/19 Range/Units 12:16 16:00 WBC (4.0-11.0) K/uL RBC (4.50-5.90) M/uL Hgb (13.0-17.0) g/dL Hct (38.0-50.0) % MCV (80.0-98.0) fL MCH (27.0-32.0) pg MCHC (31.0-37.0) g/dL RDW Std Deviation (28.0-62.0) fl RDW Coeff of [place] (11.0-15.0) % Plt Count (150-400) K/uL MPV (7.40-12.00) fL Neut % (Auto) (48.0-80.0) % Lymph % (Auto) (16.0-40.0) % [place] % (Auto) (0.0-15.0) % Eos % (Auto) (0.0-7.0) % Baso % (Auto) (0.0-1.5) % Neut # (Auto) (1.4-5.7) K/uL Lymph # (Auto) (0.6-2.4) K/uL [place] # (Auto) (0.0-0.8) K/uL Eos # (Auto) (0.0-0.7) K/uL Baso # (Auto) (0.0-0.1) K/uL Nucleated RBC % /100WBC Nucleated RBCs # K/uL Sodium (136-148) mmol/L Potassium (3.5-5.1) mmol/L Chloride (98-107) mmol/L Carbon Dioxide (21.0-32.0) mmol/L BUN (7.0-18.0) mg/dL Creatinine (0.8-1.3) mg/dL Est Cr Clr Drug Dosing mL/min Estimated GFR (MDRD) ml/min Glucose (74-106) mg/dL Calcium (8.5-10.1) mg/dL Magnesium (1.8-2.4) mg/dL Total Bilirubin (0.2-1.0) mg/dL AST (15-37) IU/L ALT (14-63) IU/L Alkaline Phosphatase (46-116) U/L Troponin I < 0.050 < 0.050 (0.000-0.056) ng/mL B-Natriuretic Peptide (<100) PG/ML Total Protein (6.4-8.2) g/dL Albumin (3.4-5.0) g/dL Globulin (2.6-4.0) g/dL Albumin/Globulin Ratio (0.9-1.6) Urine Color Urine Appearance Urine pH (5.0-8.0) Ur Specific [place] (1.001-1.035) Urine Protein (NEGATIVE) mg/dL Urine Glucose (UA) (NEGATIVE) mg/dL Urine Ketones (NEGATIVE) mg/dL Urine Occult Blood (NEGATIVE) Urine Nitrite (NEGATIVE) Urine Bilirubin (NEGATIVE) Urine Urobilinogen (<2.0) EU/dL Ur Leukocyte Esterase (NEGATIVE) Urine RBC (0-2/HPF) Urine WBC (0-5/HPF) Ur Epithelial Cells (NONE-FEW) Urine Bacteria (NEGATIVE) Result Diagrams: 10/26/19 08:40 10/26/19 08:40 Sepsis Event Note - Evaluation Sepsis Screening Result: No Definite Risk - Focused Exam Vital Signs: Vital Signs Temp Pulse Resp BP Pulse Ox 10/26/19 15:30 36.6 C 72 18 155/83 H 93 L 10/26/19 14:50 78 14 152/82 H 97 10/26/19 13:48 82 15 148/86 H 97 10/26/19 12:30 82 15 158/88 H 97 10/26/19 11:03 78 15 153/93 H 95 10/26/19 09:55 72 15 149/82 H 97 10/26/19 08:19 35.8 C 72 16 172/99 H 97 Date Exam was Performed: 10/26/19 Time Exam was Performed: 20:48 - Problem List (1) Alzheimer's dementia SNOMED Code(s): 43058040 ICD Code: G30.9 - ALZHEIMER'S DISEASE, UNSPECIFIED; F02.80 - DEMENTIA IN OTH DISEASES CLASSD ELSWHR W/O BEHAVRL DISTURB Status: Acute Current Visit: Yes (2) Chest pain SNOMED Code(s): 36293747 ICD Code: R07.9 - CHEST PAIN, UNSPECIFIED Status: Acute Current Visit: Yes (3) Intracranial hemorrhage SNOMED Code(s): 8727834 ICD Code: I62.9 - NONTRAUMATIC INTRACRANIAL HEMORRHAGE, UNSPECIFIED Status : Acute Current Visit: No Onset Date: 05/16/14 Problem List Initiated/Reviewed/Updated: Yes Orders Last 24hrs: Active Orders 24 hr Category Date Time Status Admission Status [Patient Status] [ADT] Stat ADT 10/26/19 13:05 Active Ambulate [RC] ASDIRECTED Care 10/26/19 15:30 Active Antiembolic Devices [RC] PER UNIT ROUTINE Care 10/26/19 15:33 Active Oxygen Therapy [RC] PRN Care 10/26/19 15:30 Active Pulse Oximetry [RC] PRN Care 10/26/19 15:31 Active RT Aerosol Therapy [RC] ASDIRECTED Care 10/26/19 15:33 Active VTE/DVT Education [RC] PER UNIT ROUTINE Care 10/26/19 15:30 Active Vital Signs [RC] Q4H Care 10/26/19 15:30 Active Consult to Physical Therapy [PT Evaluation and Cons 10/26/19 15:59 Active Treatment] [CONS] Routine Mechanical Soft Diet [DIET] Diet 10/26/19 Dinner Active BMP [BASIC METABOLIC PANEL,BMP] [CHEM] AM Lab 10/27/19 05:11 Ordered CBC WITH AUTO DIFF [HEME] AM Lab 10/27/19 05:11 Ordered CULTURE URINE [RM] Stat Lab 10/26/19 09:26 Received MAGNESIUM [CHEM] AM Lab 10/27/19 05:11 Ordered PHOSPHORUS [CHEM] AM Lab 10/27/19 05:11 Ordered Albuterol/Ipratropium [DuoNeb 3.0-0.5 MG/3 ML] Med 10/26/19 15:30 Active 3 ml NEB Q4HRRT PRN Aspirin Med 10/26/19 15:45 Active 81 mg PO DAILY atorvaSTATin [Lipitor] Med 10/26/19 21:00 Active 20 mg PO BEDTIME cefTRIAXone [Rocephin] 1 gm Med 10/26/19 15:45 Active Sodium Chloride 0.9% [Normal Saline] 50 ml IV Q12H Sequential Compression Device [OM.PC] Per Unit Routine Oth 10/26/19 15:31 Ordered Medication Orders Albuterol/Ipratropium (Duoneb 3.0-0.5 Mg/3 Ml) 3 ml NEB Q4HRRT PRN PRN Reason: Shortness Of Breath/wheezing Aspirin (Aspirin) 81 mg PO DAILY [facility] Last Admin: 10/26/19 16:37 Dose: 81 mg Atorvastatin Calcium (Lipitor) 20 mg PO BEDTIME [facility] Ceftriaxone Sodium 1 gm/ (Sodium Chloride) 50 mls @ 100 mls/hr IV Q12H [facility] Last Admin: 10/26/19 16:38 Dose: 100 mls/hr Assessment/Plan Comment:: 74 y/o M admitted for chest pain, tingling of b/l shoulders CT scan negative, trops negative, EKG unremarkable for acute IN Will continue to trend trops Will monitor on tele overnight WIll check and replete electrolytes SCD for DVT ppx Resume home meds PT for ambulation
[2019-10-26] MEDS ORDERED: Potassium Chloride 10% 20 MEQ/15 ML Soln 30 ML UD Cup PO ONE (16:48)
[2019-10-26] MEDS ORDERED: Donepezil 5 MG Tab PO SCH (21:00)
[2019-10-26] MEDS ORDERED: atorvaSTATin 20 MG Tab PO SCH (21:00)
[2019-10-26] MEDS: Topiramate 50 MG Tab PO SCH (21:14)
[2019-10-27] MEDS: cefTRIAXone 1 GM in Sodium Chloride 0.9% 50 ML IV SCH (04:23)
[2019-10-27 06:43] LABS: BLOOD UREA NITROGEN,BUN 18 mg/dL (7.0-18.0); CARBON DIOXIDE,CO2 22.6 mmol/L (21.0-32.0); CHLORIDE,CL 105 mmol/L (98-107); GLUCOSE RANDOM 117 mg/dL (74-106); POTASSIUM,K 3.7 mmol/L (3.5-5.1); SODIUM,NA 138 mmol/L (136-148)
[2019-10-27] MEDS ORDERED: Levothyroxine 88 MCG Tab PO SCH (07:00)
[2019-10-27] MEDS ORDERED: Acetaminophen 325 MG Tab PO PRN (08:47)
[2019-10-27] MEDS: Aspirin 81 MG Tab.Chew PO SCH (08:48)
[2019-10-27] MEDS: Topiramate 50 MG Tab PO SCH (08:48)
[2019-10-27 08:55] VITALS: BP 133/83; PULSE 73
[2019-10-27] MEDS ORDERED: Sertraline 50 MG Tab PO SCH (09:00)
--- NOTE | 2019-10-27 11:01 | PCM.DCSUM1 ---
Discharge Summary - Hospital Course HPI Initial Comments: This 74 year male with a history of severe dementia, CVA, HTN, HLD is admitted to the ED with a chief complaint of chest pain, N/V, SOB and tingling into both arms, right greater than the left since 6:00AM this morning per , although patient states that his tingling has been going on for weeks now. Reported nausea and vomiting. He complains of SOB since this morning. In the ER EKG showed Q waves in anterior leads, no acyte ST, T wave changes, troponin were negative. Patient himself denied any chest pain, only endorsed shoulder tingling for past few weeks although states he is forgetful as he has dementia. CBC, BMP were unremarkable. Patient was admitted for ACS rule out. CT scan was done which was negative for any acute findings. Cardiac enzymes were trended, which were normal, no more episodes of chest pain. Patient telemetry overnight was unremarkable. Patient was d/cd next day and recommended to fu with PCP Diagnosis: Stroke: No - Discharge Data Discharge Date: 10/27/19 Discharge Disposition: Home, Self-Care 01 Condition: Stable - Referral to Home Health Primary Care Physician: Ramin Chapman MD - Discharge Diagnosis/Problem(s) (1) Alzheimer's dementia SNOMED Code(s): 97466452 ICD Code: G30.9 - ALZHEIMER'S DISEASE, UNSPECIFIED; F02.80 - DEMENTIA IN OTH DISEASES CLASSD ELSWHR W/O BEHAVRL DISTURB Status: Acute (2) Chest pain SNOMED Code(s): 90576122 ICD Code: R07.9 - CHEST PAIN, UNSPECIFIED Status: Acute - Patient Summary/Data Consults: Consultations 10/26/19 15:59 Consult to Physical Therapy [PT Evaluation and Treatment] [CONS] Routine - Patient Instructions Diet: Heart Healthy Diet Showering/Bathing: May Shower Notify Provider of: Fever, Increased Pain, Swelling and Redness, Drainage, Nausea and/or Vomiting - Discharge Plan *PRESCRIPTION DRUG MONITORING PROGRAM REVIEWED*: Yes *COPY OF PRESCRIPTION DRUG MONITORING REPORT IN PATIENT RAJEEV: Yes Prescriptions/Med Rec: Ciprofloxacin HCl 250 mg PO Q12HR 3 Days #6 tablet atorvaSTATin [Lipitor] 20 mg PO BEDTIME 30 Days #30 tablet Ketorolac [Toradol] 10 mg PO Q12H PRN 10 Days #20 tab PRN Reason: Headache Home Medications: Home Meds Donepezil [Aricept] 10 mg PO BEDTIME 09/06/18 [History] Levothyroxine [Synthroid] 88 mcg PO SuTuThSa@0700 tablet 09/08/18 [Rx] Levothyroxine [Synthroid] 132 mcg PO MoWeFr@0700 tablet 09/08/18 [Rx] Aspirin 81 mg PO DAILY 10/26/19 [History] Sertraline HCl 50 mg PO DAILY 10/26/19 [History] Topiramate 25 mg PO BID 10/26/19 [History] Ciprofloxacin HCl 250 mg PO Q12HR 3 Days #6 tablet 10/27/19 [Rx] Ketorolac [Toradol] 10 mg PO Q12H PRN 10 Days #20 tab 10/27/19 [Rx] atorvaSTATin [Lipitor] 20 mg PO BEDTIME 30 Days #30 tablet 10/27/19 [Rx] Patient Handouts: Living With Alzheimer Disease, Nonspecific Chest Pain, Easy- to-Read, Atorvastatin tablets, Ketorolac tablets, Ciprofloxacin tablets Referrals: Ramin Chapman MD [Primary Care Provider] - - Discharge Summary/Plan Comment DC Time >30 min.: No - Patient Data Vitals - Most Recent: Last Vital Signs Temp 36.5 C 10/27/19 08:00 Pulse 73 10/27/19 08:00 Resp 16 10/27/19 08:00 BP 133/83 10/27/19 08:00 Pulse Ox 93 L 10/27/19 08:00 Weight - Most Recent: 95.8 kg I&O - Last 24 hours: Intake & Output 10/26/19 10/27/19 10/27/19 22:59 06:59 14:59 Intake Total 200 Balance 200 Lab Results - Last 24 hrs: Laboratory Results - last 24 hr 10/26/19 10/26/19 10/27/19 Range/Units 12:16 16:00 06:15 WBC 8.80 (4.0-11.0) K/uL RBC 4.88 (4.50-5.90) M/uL Hgb 15.7 (13.0-17.0) g/dL Hct 45.5 (38.0-50.0) % MCV 93.2 (80.0-98.0) fL MCH 32.2 H (27.0-32.0) pg MCHC 34.5 (31.0-37.0) g/dL RDW Std Deviation 47.2 (28.0-62.0) fl RDW Coeff of [place] 14 (11.0-15.0) % Plt Count 178 (150-400) K/uL MPV 10.30 (7.40-12.00) fL Neut % (Auto) 61.7 (48.0-80.0) % Lymph % (Auto) 25.8 (16.0-40.0) % [place] % (Auto) 10.8 (0.0-15.0) % Eos % (Auto) 1.1 (0.0-7.0) % Baso % (Auto) 0.6 (0.0-1.5) % Neut # (Auto) 5.4 (1.4-5.7) K/uL Lymph # (Auto) 2.3 (0.6-2.4) K/uL [place] # (Auto) 1.0 H (0.0-0.8) K/uL Eos # (Auto) 0.1 (0.0-0.7) K/uL Baso # (Auto) 0.1 (0.0-0.1) K/uL Nucleated RBC % 0.0 /100WBC Nucleated RBCs # 0 K/uL Sodium (136-148) mmol/L Potassium (3.5-5.1) mmol/L Chloride (98-107) mmol/L Carbon Dioxide (21.0-32.0) mmol/L BUN (7.0-18.0) mg/dL Creatinine (0.8-1.3) mg/dL Est Cr Clr Drug Dosing mL/min Estimated GFR (MDRD) ml/min Glucose (74-106) mg/dL Calcium (8.5-10.1) mg/dL Phosphorus (2.6-4.7) mg/dL Magnesium (1.8-2.4) mg/dL Troponin I < 0.050 < 0.050 (0.000-0.056) ng/mL 10/27/19 Range/Units 06:15 WBC (4.0-11.0) K/uL RBC (4.50-5.90) M/uL Hgb (13.0-17.0) g/dL Hct (38.0-50.0) % MCV (80.0-98.0) fL MCH (27.0-32.0) pg MCHC (31.0-37.0) g/dL RDW Std Deviation (28.0-62.0) fl RDW Coeff of [place] (11.0-15.0) % Plt Count (150-400) K/uL MPV (7.40-12.00) fL Neut % (Auto) (48.0-80.0) % Lymph % (Auto) (16.0-40.0) % [place] % (Auto) (0.0-15.0) % Eos % (Auto) (0.0-7.0) % Baso % (Auto) (0.0-1.5) % Neut # (Auto) (1.4-5.7) K/uL Lymph # (Auto) (0.6-2.4) K/uL [place] # (Auto) (0.0-0.8) K/uL Eos # (Auto) (0.0-0.7) K/uL Baso # (Auto) (0.0-0.1) K/uL Nucleated RBC % /100WBC Nucleated RBCs # K/uL Sodium 138 (136-148) mmol/L Potassium 3.7 (3.5-5.1) mmol/L Chloride 105 (98-107) mmol/L Carbon Dioxide 22.6 (21.0-32.0) mmol/L BUN 18 (7.0-18.0) mg/dL Creatinine 1.1 (0.8-1.3) mg/dL Est Cr Clr Drug Dosing 57.00 mL/min Estimated GFR (MDRD) > 60.0 ml/min Glucose 117 H (74-106) mg/dL Calcium 8.9 (8.5-10.1) mg/dL Phosphorus 2.7 (2.6-4.7) mg/dL Magnesium 2.1 (1.8-2.4) mg/dL Troponin I (0.000-0.056) ng/mL Med Orders - Current: Current Medications Acetaminophen (Tylenol) 650 mg PO Q6H PRN PRN Reason: Headache Last Admin: 10/27/19 08:55 Dose: 650 mg Albuterol/Ipratropium (Duoneb 3.0-0.5 Mg/3 Ml) 3 ml NEB Q4HRRT PRN PRN Reason: Shortness Of Breath/wheezing Aspirin (Aspirin) 81 mg PO DAILY [facility] Last Admin: 10/27/19 08:48 Dose: 81 mg Atorvastatin Calcium (Lipitor) 20 mg PO BEDTIME [facility] Last Admin: 10/26/19 21:15 Dose: 20 mg Donepezil HCl (Aricept) 10 mg PO BEDTIME [facility] Last Admin: 10/26/19 21:15 Dose: 10 mg Ceftriaxone Sodium 1 gm/ (Sodium Chloride) 50 mls @ 100 mls/hr IV Q12H [facility] Last Admin: 10/27/19 04:23 Dose: 100 mls/hr Levothyroxine Sodium (Synthroid) 88 mcg PO SuTuThSa@0700 [facility] Last Admin: 10/27/19 07:42 Dose: 88 mcg Levothyroxine Sodium (Synthroid) 132 mcg PO MoWeFr@0700 [facility] Sertraline HCl (Zoloft) 50 mg PO DAILY [facility] Last Admin: 10/27/19 08:50 Dose: 50 mg Topiramate (Topamax) 25 mg PO BID [facility] Last Admin: 10/27/19 08:48 Dose: 25 mg Discontinued Medications Ketorolac Tromethamine (Toradol) 30 mg IVPUSH ONETIME ONE Stop: 10/26/19 11:07 Last Admin: 10/26/19 11:10 Dose: 30 mg Potassium Chloride (Potassium Chloride) 40 meq PO ONETIME ONE Stop: 10/26/19 16:49 Last Admin: 10/26/19 17:21 Dose: 40 meq
[2019-10-28] MEDS ORDERED: Levothyroxine 88 MCG Tab PO SCH (07:00)
== END 2019-10-27 11:45 | disposition home or self-care (01) ==
LOC: MW.ED 08:05 → MW.MS 13:05 → MW.ED 15:08
PROVIDERS: ADMIT Student in an Organized Health Care Education/Training Program; ATTEND Student in an Organized Health Care Education/Training Program
DX: R07.9 Chest pain, unspecified (principal); R11.2 Nausea with vomiting, unspecified; R06.02 Shortness of breath; R20.2 Paresthesia of skin; I10 Essential (primary) hypertension; E78.5 Hyperlipidemia, unspecified; G30.9 Alzheimer's disease, unspecified; F02.80 Dementia in other diseases classified elsewhere, unspecified severity, without behavioral disturbance, psychotic disturbance, mood disturbance, and anxiety; E78.00 Pure hypercholesterolemia, unspecified; G47.30 Sleep apnea, unspecified; K21.9 Gastro-esophageal reflux disease without esophagitis; I69.998 Other sequelae following unspecified cerebrovascular disease; I69.911 Memory deficit following unspecified cerebrovascular disease; F41.9 Anxiety disorder, unspecified; F32.9 Major depressive disorder, single episode, unspecified; E03.9 Hypothyroidism, unspecified; I62.9 Nontraumatic intracranial hemorrhage, unspecified; E66.9 Obesity, unspecified; Z87.891 Personal history of nicotine dependence; Z79.899 Other long term (current) drug therapy; Z79.82 Long term (current) use of aspirin; Z91.041 Radiographic dye allergy status; Z99.89 Dependence on other enabling machines and devices; Z68.32 Body mass index [BMI] 32.0-32.9, adult
CPT/HCPCS: 36415; 70450; 71045; 80048; 80053; 81001; 83735; 83880; 84100; 84484; 85025; 87086; 87088; 87186; 93005; A9270; J0696; J1885; J7050; 96374; 96375; 96376; 99283; 99285-25; G0378